=== PATIENT | male | born 1955 | race Two or more races ===

== ENCOUNTER → 2017-03-08 | Outpatient (CLI) | payer BC ==
[~2017-03-08] MED LIST: ASPI-482 PO; ATOR40TA59 PO; DOCU-109 PO; ESZO3TAB28 PO; FAMO20TA5 PO; HYDR-2762 PO; LOSA100T6 PO; METF500T4 PO; METH-38 PO; PROAIR RESPICL90 MCG IH
[2017-03-08 16:11] LABS: ALBUMIN 3.7 g/dL (3.4-5.0); ALBUMIN/GLOBULIN RATIO 0.9 (1.0-1.7); CALCIUM 9.5 mg/dL (8.5-10.1); GFR 75.5; POTASSIUM 4.2 mmol/L (3.5-5.1); TOTAL BILIRUBIN 0.4 mg/dL (0.2-1.0); TOTAL PROTEIN 7.8 g/dL (6.4-8.2)
== END | disposition home or self-care (01) ==
LOC: SURGPAT 15:26
PROVIDERS: ATTEND Neurological Surgery
DX: Z01.818 Encounter for other preprocedural examination (principal); M51.16 Intervertebral disc disorders with radiculopathy, lumbar region; M48.061 Spinal stenosis, lumbar region without neurogenic claudication
CPT/HCPCS: 36415; 80053; 87641

== ENCOUNTER → 2017-03-17 | Day surgery (SDC) | payer BC ==
--- NOTE | 2017-03-15 10:16 | PREOP HP ---
DATE OF SERVICE: 03/17/2017 HISTORY OF PRESENT ILLNESS: The patient is a pleasant 62-year-old who is having difficulty with low back pain and pain which radiates into both of his buttocks and thighs. The right side is much more involved than the left. The problem has been present for years, but has worsened over the last several months. He rates his pain as a 7/10 constantly. He said physical therapy and driving make the problem worse. Ice seems to help. He had epidural steroid injections, which he said helped significantly for about 2 weeks and then the pain returned. PAST MEDICAL HISTORY: Hepatitis A. PAST SURGICAL HISTORY: Splenectomy in 1970, right knee meniscus repair, left knee meniscus repair in 2012, right shoulder 2013. FAMILY HISTORY: Cancer, diabetes, heart attack in early age. 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 . Exercises daily. Denies substance abuse. Denies tobacco use. Drinks alcohol one to two times per month. Drinks caffeine daily. ALLERGIES: No known drug allergies. CURRENT MEDICATIONS: Losartan, metformin, ibuprofen, naproxen, Tylenol. REVIEW OF SYSTEMS: A 12-point review of systems was obtained and is noncontributory except that mentioned above. NEUROSURGERY EXAMINATION: GENERAL APPEARANCE: Pleasant, in no acute distress. HEAD: Normocephalic and atraumatic. SKIN: Warm and dry. MUSCULOSKELETAL: Lumbar paraspinal muscle bulk is normal, restricted range of motion of lumbar spine. Normal range of motion of the lower extremities bilaterally. Tenderness in the lower lumbar spine with palpation, especially on the right side. EXTREMITIES: No clubbing, cyanosis or edema. NEUROLOGIC: Alert and oriented x 3, normal recent and remote memory, strength 5/5 in bilateral lower extremities, sensory was intact to light touch in bilateral lower extremities, reflexes were present and symmetric in the lower extremities bilaterally, straight leg raising on the right was associated with right buttock pain, relieved with Lasegue maneuver. IMAGING: Reviewed. I reviewed the lumbar MRI scan. On that study, there is a right-sided disk bulge/herniation at L4-L5, which when combined with hypertrophic facet and ligamentum flavum results in severe right-sided lateral recess and proximal foraminal narrowing. There are more mild changes, which are similar on the left side at this level. ASSESSMENT: 1. Spinal stenosis, lumbar region. 2. Radiculopathy, lumbar region. PLAN: I believe the problems at L4-L5 on the right are responsible for the majority of the pain he is experiencing. I spoke with him about the treatment options. At this point, we have elected to try a lumbar microsurgical decompression at L4-L5. I spoke with him about the surgery and the risks involved. He understands and would like for me to go ahead. We will make the arrangement. DEAN GIFFORD MD DR: RENATA/inocencia JOB#: [id number] / [id number]
[~2017-03-17] VITALS: Ht 172.7 cm; Wt 90.7 kg
[~2017-03-17] MED LIST changes: +0.9 % SODIUM CHLORIDE 50 ML VIAL. IJ ONE; +BACITRACIN 50,000 UNIT in IV NORMAL SALINE 1000ML BAG 1,000 ML IRR ONE; +BUPIVAC MPF-EPI 0.5%-1:200000 30 ML VIAL. INJ ONE; +BUPIVAC MPF-EPI 0.5%-1:200000 30 ML VIAL. ONE; +DESFLURANE > 120 MINUTES IH ONE; +DEXAMETHASONE SOD PHOS 20 MG/5 ML VIAL. ONE; +GELATIN SPONGE SIZE 100. ONE; +GELATIN SPONGE SIZE 100. TP ONE; +GLYCOPYRROLATE 1 MG/5 ML VIAL. ONE; +HYDROcodone/APAP 7.5/325MG 1 TAB TABLET PO PRN; +HYDROmorphone 2 MG/ML VIAL IV PRN; +IV RINGERS,LACTATED 1000ML 1,000 ML IV SCH; +KETOROLAC 60 MG/2 ML INJ FOR OR. INJ ONE; +KETOROLAC 60 MG/2 ML INJ FOR OR. ONE; +LIDOCAINE 1% PF 2 ML VIAL. ID PRN; +LIDOCAINE 2% PF Vial for OR 5 ML VIAL. ONE; +MINERAL OIL/PETROLATUM,WHITE OPHTH OINT 3.5GM TUBE. ONE; +MORPHINE SULFATE 2 MG/ML DISP.SYRIN. IV PRN; +NEOSTIGMINE 10 MG/10 ML VIAL. ONE; +ONDANSETRON PF 4 MG/2 ML VIAL. IV PRN; +ONDANSETRON PF 4 MG/2 ML VIAL. ONE; +PHENYLEPHRINE 10 MG/ML VIAL. ONE; +PROCHLORPERAZINE 10 MG/2 ML VIAL. IV PRN; +PROPOFOL 20 ML IV ONE; +PROPOFOL 50 ML IV ONE; +REMIFENTANIL 2 MG VIAL. IV ONE; +ROCURONIUM 50 MG/5 ML VIAL. ONE; +THROMBIN TOPICAL 20,000 UNIT SPRAY.SYRN KIT TP ONE; +ceFAZolin 2GM PREMIX 2 GM/50 ML BAG IV ONE; +fentaNYL PF VIAL 100 MCG/2 ML VIAL IV PRN; +fentaNYL PF VIAL 100 MCG/2 ML VIAL ONE
--- NOTE | 2017-03-17 10:55 | DISCH ---
DISCHARGE INSTRUCTIONS Condition on Discharge Condition on Discharge: Stable Activity After Discharge Activity Instructions for Disc: Activity as tolerated, Avoid exertion Other activity instructions: do not drive for a week Lifting Instructions after Dis: No heavy lifting, No pulling or pushing, Do not lift >10 pounds Diet after Discharge Additional Diet Restrictions: resume home diet Wound Incision Care Wound/Incision Care: Ice to area for comfort Other wound/incision instructi: may remove dressing in 48 hrs if dry then may shower- no soaking Contacting the after DC Call your doctor for: Concerns you may have Follow-Up Follow up with: Dr. Gifford's nurse in 2 weeks [phone] DEAN GIFFORD MD Mar 17, 2017 10:54
[2017-03-17] MEDS: fentaNYL PF VIAL 100 MCG/2 ML VIAL IV PRN ×2 (11:15→11:28)
--- NOTE | 2017-03-17 11:17 | OP ---
DATE OF SURGERY: 03/17/2017 PREOPERATIVE DIAGNOSES: Lateral recess stenosis and herniated lumbar disc, L4-L5 right with right lumbar radiculopathy. POSTOPERATIVE DIAGNOSES: Lateral recess stenosis and herniated lumbar disc, L4-L5 right with right lumbar radiculopathy. OPERATION PERFORMED: Hemilaminotomy and microdiscectomy L4-L5, right. The operation was done under EMG monitoring, fluoroscopy, and microscopic dissection. SURGEON: Robert Gifford M.D. ENGINE LATHE OPERATOR: JERO Henderson assisted with the surgery, she assisted with the exposure, the microdiscectomy as well as the closure. OPERATIVE INDICATIONS: The patient is a very pleasant 62-year-old man who developed intractable back and right greater than left leg pain, which became very severe and disabling. On imaging studies, he had significant changes with disc bulging and lateral stenosis on the right at L4-L5 and I recommended lumbar microsurgery. He had similar findings on the left side, but it was not as severe and I felt that because of the majority of his pain was on the right that the operation should be focused to the right side and I did discuss this with him prior to surgery. DESCRIPTION OF PROCEDURE: Following general endotracheal anesthesia, the patient was positioned prone on the Davie table with lumbar regions prepped and draped in the standard fashion. MARIANGEL hose and AV impulse boots were applied for deep venous thrombosis prophylaxis. The microscope was draped. Fluoroscopy was draped and brought into field. Monitoring was established. Ancef 2 grams was given less than 1 hour prior to initiation of surgery. Using fluoroscopic guidance, incision was made over the L4-L5 interspace. I dissected down through the skin to the subcutaneous tissue, reflected the paraspinal muscles and placed [place] micro disc retractor. Then, I brought in the microscope and the remainder of surgery was done with the microscope using microscopic technique. I burred down a generous hemilaminotomy with a high speed air drill and visualized the ligamentum flavum, which extended slightly farther superiorly in this patient than the average patient and I trimmed further bone superiorly to allow me to gently free up and peel away the ligament providing a wide decompression for the dura. I did work at least to the midline and slightly beyond with the decompression until I felt I had a very wide decompression medially to laterally. I trimmed the lateral ligament and worked to the pedicle as well and performed a partial foraminotomy. Superiorly I worked and trimmed all the left thickened ligament, which was partially calcified and exposed the dura and the exiting root at the level of the disc and slightly above. I then gently retracted the dura medially with a micro nerve root retractor, incised the annulus and performed a discectomy with pituitary rongeurs. The disc space was largely collapsed, but there was a significant bulging of subligamentous herniated material, which I then teased back and removed in multiple small fragments and as I worked, the region became very well decompressed. I then explored carefully. There were a few epidural veins, which I coagulated without difficulty. There was a small amount of bone wax, which was used for hemostasis and then I irrigated copiously, removed the retractors and then obtained hemostasis in the muscle. I irrigated again copiously and then I closed the wound in layers with absorbable sutures. Skin was closed with a 4-0 subcuticular stitch. The operation went very well and the patient was taken to the recovery room in excellent condition. I was quite pleased with the surgery. ROBERT GIFFORD MD DR: RENATA/inocencia JOB#: [id number] / [id number] REI
[2017-03-17 12:15] VITALS: BP 132/63
--- NOTE | 2017-03-22 12:09 | PATHOLOGY ---
PATHOLOGY REPORT * * * * * * * * FINAL DIAGNOSIS: "Lumbar decompression plus disc", removal: - Fragments of fibrocartilage with mild degenerative changes. - Fragments of unremarkable fibroadipose tissue and bone. (SKM:pit; 03/22/2017) REPORT ELECTRONICALLY SIGNED BY: Maury Porter M.D. DATE/TIME: 03/22/2017 12:08 * * * * * * * * GROSS PATHOLOGY: Received in formalin labeled "Mansoor Enriquez, lumbar decompression plus disc," are several pieces of glistening, fibrous tissue measuring 6.7 x 3.5 x 1.5 cm in aggregate dimensions, containing small fragments of possible bone. The tissue is submitted representatively in cassette A1, following decalcification. (TSD; 03/19/2017) INITIAL CPT CODE(S): A; 50137, 74129 Professional services [place] [place] [address] Technical services performed by [facility] at [address] [place] [address], [place] [address]. SPECIMEN(S) RECEIVED: A.Lumbar decompression and disc CLINICAL HISTORY: Lumbar stenosis, radiculopathy PATIENT: MANSOOR ENRIQUEZ /AGE: 9 1955 (Age: 62) PATIENT #: [id number] ALT CASE #: SPECIMEN COLLECTION DATE: 03/17/2017 SPECIMEN RECEIVED DATE: 03/19/2017 [facility] - [address] [place] [address] - PHONE: [phone] * * * END OF REPORT * * *
== END | disposition home or self-care (01) ==
LOC: SURG 07:13
PROVIDERS: ATTEND Neurological Surgery
DX: M48.061 Spinal stenosis, lumbar region without neurogenic claudication (principal); M51.16 Intervertebral disc disorders with radiculopathy, lumbar region; E78.00 Pure hypercholesterolemia, unspecified; J45.909 Unspecified asthma, uncomplicated; K21.9 Gastro-esophageal reflux disease without esophagitis; E11.9 Type 2 diabetes mellitus without complications; F41.9 Anxiety disorder, unspecified; F17.200 Nicotine dependence, unspecified, uncomplicated; Z90.49 Acquired absence of other specified parts of digestive tract; Z98.890 Other specified postprocedural states
CPT/HCPCS: 63030; 76000; 82962; 88304; 88311; J0690; J1100; J1885; J2405; J2704; J2710; J3010; J3490; J7030; J7120; J2001

== ENCOUNTER → 2020-08-21 | Outpatient (CLI) | payer MEDICARE ==
[2017-03-17 12:15] VITALS: BP 132/63
[~2020-08-21] MED LIST changes: -0.9 % SODIUM CHLORIDE 50 ML VIAL. IJ ONE; +ASCO500C PO; -BACITRACIN 50,000 UNIT in IV NORMAL SALINE 1000ML BAG 1,000 ML IRR ONE; -BUPIVAC MPF-EPI 0.5%-1:200000 30 ML VIAL. INJ ONE; -BUPIVAC MPF-EPI 0.5%-1:200000 30 ML VIAL. ONE; -DESFLURANE > 120 MINUTES IH ONE; -DEXAMETHASONE SOD PHOS 20 MG/5 ML VIAL. ONE; -GELATIN SPONGE SIZE 100. ONE; -GELATIN SPONGE SIZE 100. TP ONE; -GLYCOPYRROLATE 1 MG/5 ML VIAL. ONE; -HYDR-2762 PO; +HYDR-2765 PO; -HYDROcodone/APAP 7.5/325MG 1 TAB TABLET PO PRN; -HYDROmorphone 2 MG/ML VIAL IV PRN; -IV RINGERS,LACTATED 1000ML 1,000 ML IV SCH; -KETOROLAC 60 MG/2 ML INJ FOR OR. INJ ONE; -KETOROLAC 60 MG/2 ML INJ FOR OR. ONE; -LIDOCAINE 1% PF 2 ML VIAL. ID PRN; -LIDOCAINE 2% PF Vial for OR 5 ML VIAL. ONE; +LOSA100T14 PO; -LOSA100T6 PO; +METF500T16 PO; -METF500T4 PO; +METH-562 PO; -MINERAL OIL/PETROLATUM,WHITE OPHTH OINT 3.5GM TUBE. ONE; -MORPHINE SULFATE 2 MG/ML DISP.SYRIN. IV PRN; +MULT-245 PO; +MV-M1TAB7 PO; -NEOSTIGMINE 10 MG/10 ML VIAL. ONE; +OMEG1CAP50 PO; +OMEP40CA45 PO; -ONDANSETRON PF 4 MG/2 ML VIAL. IV PRN; -ONDANSETRON PF 4 MG/2 ML VIAL. ONE; +OXYC1TAB15 PO; -PHENYLEPHRINE 10 MG/ML VIAL. ONE; -PROCHLORPERAZINE 10 MG/2 ML VIAL. IV PRN; -PROPOFOL 20 ML IV ONE; -PROPOFOL 50 ML IV ONE; -REMIFENTANIL 2 MG VIAL. IV ONE; -ROCURONIUM 50 MG/5 ML VIAL. ONE; -THROMBIN TOPICAL 20,000 UNIT SPRAY.SYRN KIT TP ONE; +TRAZ-118 PO; +VITA100022 PO; -ceFAZolin 2GM PREMIX 2 GM/50 ML BAG IV ONE; -fentaNYL PF VIAL 100 MCG/2 ML VIAL IV PRN; -fentaNYL PF VIAL 100 MCG/2 ML VIAL ONE
[2020-08-21 14:14] LABS: BASO # 0.1 x10^3/uL (0.0-0.2); BASO % 1 % (0-3); EOS % 1 % (0-3); HEMATOCRIT 44.7 % (39.0-53.0); HEMOGLOBIN 15.1 g/dL (13.0-17.5); LYMPH # 2.4 x10^3/uL (1.0-4.8); LYMPH % 28 % (24-48); MEAN CORPUSCULAR HEMOGLOBIN 32 pg (25-35); MEAN CORPUSCULAR HGB CONC 34 g/dL (31-37); MEAN CORPUSCULAR VOLUME 95 fL (79-100); MONO # 0.8 x10^3/uL (0.0-1.1); MONO % 10 % (0-9); NEUT % 61 % (31-73); PLATELET COUNT 305 x10^3/uL (140-400); RED BLOOD COUNT 4.73 x10^6/uL (4.30-5.70); RED CELL DISTRIBUTION WIDTH 14.5 % (11.5-14.5); WHITE BLOOD COUNT 8.3 x10^3/uL (4.0-11.0)
[2020-08-21 14:23] LABS: PROTHROMBIN TIME PATIENT 12.9 SEC (11.7-14.0)
--- NOTE | 2020-08-21 14:28 | EKG ---
[facility] [address] [place] [address] Test Date: 2020-08-21 Test Time: 14:24:55 Pat Name: MANSOOR FREEMAN Department: Room: Gender: M Outlet Manager: : 1955 Requested By: DEAN GIFFORD Order Number: [id number] Reading MD: Ezequiel Burgos Measurements Intervals Emmett Rate: 82 P: 35 CT: 164 QRS: 10 QRSD: 86 T: 25 QT: 352 QTc: 414 Interpretive Statements SINUS RHYTHM NORMAL ECG RI6.02 No previous ECG available for comparison Electronically Signed On 08-22-2020 11:32:22 CDT by Ezequiel Burgos
[2020-08-21 14:32] LABS: ALBUMIN 3.9 g/dL (3.4-5.0); ALBUMIN/GLOBULIN RATIO 1.1 (1.0-1.7); CALCIUM 8.9 mg/dL (8.5-10.1); CREATININE 1.2 mg/dL (0.7-1.3); GFR 60.6; POTASSIUM 3.6 mmol/L (3.5-5.1); TOTAL BILIRUBIN 0.5 mg/dL (0.2-1.0); TOTAL PROTEIN 7.3 g/dL (6.4-8.2)
--- NOTE | 2020-08-23 13:48 | HP ---
ADMIT DATE: 08/26/2020 PREOPERATIVE HISTORY AND PHYSICAL HISTORY OF PRESENT ILLNESS: The patient is a pleasant 65-year-old man who is having difficulty with back and bilateral thigh pain. The problem has been slowly worsening. He rates his pain as 8/10 at its worst. He has a constant 2/10 pain. Walking or sitting too long increases his pain. He takes naproxen or ibuprofen to help with the pain. He underwent physical therapy in 2017 as well as epidural steroid injections more recently, which were not helpful. The left leg is not involved. MEDICATIONS: Losartan, metformin, ibuprofen, naproxen, Tylenol, atorvastatin, multivitamin, turmeric, vitamin D3, vitamin B complex, vitamin E, aspirin. PAST MEDICAL HISTORY: Hepatitis A, diabetes, COVID-19, kidney stones. PAST SURGICAL HISTORY: Splenectomy, right knee meniscus repair, left knee meniscus repair, right shoulder surgery, lumbar decompression/microdiskectomy L4-L5 in 02/2017. FAMILY HISTORY: Cancer, diabetes, [place]. SOCIAL HISTORY: Retired, . Does not smoke. Drinks alcohol 1-2 times per month. ALLERGIES: No known drug allergies. REVIEW OF SYSTEMS: A 10-point review of systems was performed and is noncontributory except that mentioned above. PHYSICAL EXAMINATION: GENERAL: Alert, pleasant, and in no acute distress. HEENT: Normocephalic, atraumatic. SKIN: Warm and dry. MUSCULOSKELETAL: Lumbar paraspinal muscle bulk is normal. Restricted range of motion of the lumbar spine, [id number] tenderness of the lower lumbar spine with palpation, normal range of motion of the lower extremities bilaterally. EXTREMITIES: No clubbing, cyanosis or edema. NEUROLOGIC: Alert and oriented x 3. Strength is 5/5 in the bilateral lower extremities except for right hip flexor and dorsiflexion, which is 4+/5. Sensory was intact to light touch in the lower extremities bilaterally, reflexes were present and symmetric in the lower extremities bilaterally, positive straight leg raising on the right, negative straight leg raising on the left, normal gait. IMAGING DATA: I reviewed a lumbar MRI scan. On that study, there is moderately severe canal stenosis at L3-L4 due to disk bulging and increasing facet thickness. There is also an element of epidural lipomatosis. At L4-L5, there are postoperative changes from his previous right-sided laminectomy. There is diffuse disk bulging with subarticular and severe foraminal narrowing on the right and to a lesser extent on the left. ASSESSMENT AND PLAN: I spoke with him about his symptoms and the lumbar radiculopathy. He does have lumbar stenosis at L3-L4, which would require a right direct laminectomy/decompression. At L4-5, which is a previously operated level, has foraminal narrowing. He would require a combination of lumbar facetectomy on the right combined with an interbody fusion and posterior instrumentation and fusion at that level. I did discuss this with him in detail. We spoke about the risks and the technique of the operation. We spoke about the expected postoperative course. He understands that he would like to go ahead. ABDIRASHID DR: Abdi TID: [id number] REI
== END ==
LOC: SURGPAT 13:29
PROVIDERS: ATTEND Neurological Surgery
DX: Z01.818 Encounter for other preprocedural examination (principal); M48.061 Spinal stenosis, lumbar region without neurogenic claudication; M54.16 Radiculopathy, lumbar region; E11.9 Type 2 diabetes mellitus without complications; Z20.822 Contact with and (suspected) exposure to COVID-19; Z86.16 Personal history of COVID-19
CPT/HCPCS: 36415; 80053; 83036; 85025; 85610; 85730; 87641; 93005; U0003; U0005

== ENCOUNTER 2020-08-26 06:11 | Inpatient (IN) | payer MEDICARE ==
[~2020-08-26] VITALS: Ht 172.7 cm; Wt 88.9 kg
[~2020-08-26 06:11] MED LIST changes: +BACITRACIN 50,000 UNIT in IV NORMAL SALINE 1000ML BAG 1,000 ML IRR ONE; -METH-562 PO; -OXYC1TAB15 PO
[2020-08-26] MEDS ORDERED: GELATIN SPONGE SIZE 100. ONE (07:03)
[2020-08-26] MEDS ORDERED: KETOROLAC 60 MG/2 ML VIAL. ONE (07:04)
[2020-08-26] MEDS ORDERED: BUPIVACAINE MPF 0.5% 30 ML VIAL. ONE (07:04)
[2020-08-26] MEDS ORDERED: THROMBIN TOPICAL 20,000 UNIT SPRAY.SYRN KIT TP ONE (07:04)
[2020-08-26] MEDS ORDERED: BUPIVACAINE-EPI 0.5%-1:200000 MPF 30 ML VIAL. ONE (07:05)
[2020-08-26] MEDS: IV RINGERS,LACTATED 1000ML 1,000 ML IV SCH ×2 (07:22→21:00)
[2020-08-26] MEDS ORDERED: REMIFENTANIL 2 MG VIAL. IV ONE (08:18)
[2020-08-26] MEDS ORDERED: MIDAZOLAM HCL/PF 2 MG/2 ML VIAL. ONE (08:18)
[2020-08-26] MEDS ORDERED: ROCURONIUM 50 MG/5 ML VIAL. ONE (08:18)
[2020-08-26] MEDS ORDERED: fentaNYL PF VIAL 250 MCG/5 ML VIAL ONE (08:18)
[2020-08-26] MEDS ORDERED: LIDOCAINE 2% PF 5 ML VIAL. ONE (08:19)
[2020-08-26] MEDS ORDERED: ONDANSETRON PF 4 MG/2 ML VIAL. ONE (08:19)
[2020-08-26] MEDS ORDERED: PROPOFOL 10 MG/ML (20ML) VIAL. IV ONE (08:19)
[2020-08-26] MEDS ORDERED: PROPOFOL 50 ML IV ONE ×2 (08:19→11:13)
[2020-08-26] MEDS ORDERED: DEXAMETHASONE SOD PHOS 4 MG/ML VIAL ONE (08:19)
[2020-08-26] MEDS ORDERED: INSULIN LISPRO 100 UNIT/ML 3ML VIAL for OP,RR ONLY. SQ PRN (08:30)
--- NOTE | 2020-08-26 08:43 | RAD ---
EXAM: CT lumbar spine without IV contrast CLINICAL HISTORY: BRAIN LAB, LUMBAR RADICULOPATHY COMPARISON: None available. TECHNIQUE: Helical CT was performed through the lumbar spine. Axial, coronal and sagittal reformatted images were generated. PQRS compliance statement - One or more of the following individualized dose reduction techniques wer e utilized for this study: 1. Automated exposure control 2. Adjustment of the mA and/or kV according to patient size 3. Use of iterative reconstruction technique FINDINGS: There are 5 nonrib-bearing lumbar-type vertebral bodies. Vertebral body heights are preserved. Severe L4-5 disc height loss. Mild L1-2 disc height loss. No spondylolisthesis. No acute fracture. Aortic calcifications are seen. No obvious retroperitoneal mass or lymphadenopathy is seen. L1-L2: Mild generalized disc bulge with ligamentum flavum hypertrophy and facet degenerative changes are seen resulting in mild flattening of the ventral thecal sac and mild bilateral neural foraminal n arrowing. L2-L3: Generalized disc bulge with ligamentum flavum hypertrophy and facet degenerative changes with mildly prominent epidural fat results in moderate central canal stenosis with thecal sac measuring ap proximately 8 mm in AP dimension with trace inferior neural foraminal narrowing, greater on the right . L3-L4: Generalized disc bulge with ligamentum flavum hypertrophy with prominent epidural fat results in severe thecal sac narrowing measuring approximately 5 mm in AP dimension with mild inferior neural foraminal narrowing bilaterally, greater on the right. L4-L5: Generalized disc bulge, eccentric to the right with ligamentum flavum hypertrophy and facet de generative changes and prominent epidural fat results in mild thecal sac narrowing, greater on the le ft with mild left and moderate to severe right neural foraminal narrowing. L5-S1: Mild generalized disc bulge with ligamentum flavum hypertrophy and facet degenerative changes result in mild central canal stenosis, moderate left and mild right neural foraminal narrowing. IMPRESSION: 1. No acute fracture or subluxation. 2. Multilevel degenerative changes of the lumbar spine as above, in conjunction with prominent epidu ral fat results in multilevel central canal stenosis or neural foraminal narrowing, most prominent at L3-4 and L4-5. Please see full details above. Electronically signed by: Dipesh Browning MD (08/26/2020 8:41 AM) [id number]
[2020-08-26] MEDS ORDERED: ePHEDrine PF IN SALINE 50 MG/10 ML SYRINGE. IV ONE (09:22)
[2020-08-26] MEDS ORDERED: REMIFENTANIL 1 MG VIAL. IV ONE (11:15)
[2020-08-26] MEDS ORDERED: DESFLURANE > 120 MINUTES IH ONE (11:33)
[2020-08-26] MEDS ORDERED: NEOSTIGMINE METHYLSULFATE 5 MG/5 ML SYRINGE. ONE (13:27)
[2020-08-26] MEDS ORDERED: GLYCOPYRROLATE 1 MG/5 ML VIAL. ONE (13:27)
[2020-08-26] MEDS: POTASSIUM CL 20MEQ D5-0.45NACL 1,000 ML IV SCH (13:45)
[2020-08-26] MEDS ORDERED: ONDANSETRON PF 4 MG/2 ML VIAL. IVP PRN (13:45)
[2020-08-26] MEDS ORDERED: CALCIUM CARBONATE 500 MG TAB.CHEW PO PRN (13:45)
[2020-08-26] MEDS ORDERED: diphenhydrAMINE HCL 25 MG CAPSULE PO PRN (13:45)
[2020-08-26] MEDS ORDERED: 0.9 % SODIUM CHLORIDE 10 ML DISP.SYRIN. IV PRN (13:45)
[2020-08-26] MEDS ORDERED: oxyCODONE/APAP 5/325 1 TAB TABLET PO PRN (13:45)
[2020-08-26] MEDS ORDERED: NON FORMULARY ITEM (Albuterol Sulfate (Proair Respiclick) 1 PUFF) IH PRN (13:45)
[2020-08-26] MEDS ORDERED: METHOCARBAMOL 750 MG TABLET PO PRN (13:45)
[2020-08-26] MEDS ORDERED: ACETAMINOPHEN 325 MG TABLET. PO PRN (13:45)
[2020-08-26] MEDS ORDERED: fentaNYL PF VIAL 100 MCG/2 ML VIAL IVP PRN ×3 (13:45→14:30)
[2020-08-26] MEDS ORDERED: MAG HYDROX/ALUMINUM HYD/SIMETH 30 ML ORAL.SUSP PO PRN (13:45)
[2020-08-26] MEDS ORDERED: MAGNESIUM HYDROXIDE 2,400 MG/30 ML ORAL.SUSP. PO PRN (13:45)
[2020-08-26] MEDS ORDERED: IV RINGERS,LACTATED 1000ML 1,000 ML IV SCH (14:30)
[2020-08-26] MEDS ORDERED: HYDROmorphone 2 MG/ML VIAL IVP PRN (14:30)
[2020-08-26] MEDS ORDERED: PROCHLORPERAZINE 10 MG/2 ML VIAL. IVP PRN (14:30)
[2020-08-26] MEDS: MORPHINE SULFATE 2 MG/ML VIAL. IVP PRN ×2 (15:09→15:25)
[2020-08-26] MEDS ORDERED: ALBUTEROL SULFATE 2.5 MG/3 ML NEBU. NEB PRN (15:30)
--- NOTE | 2020-08-26 15:45 | NUR ---
Arrive on unit by bed from PACU. Alert and oriented x's 4. No c/o at this time. Dressing saturated and changed. Pt able to move all extremities, warm touch and pedal pulses + bilaterally. Has some numbness on right foot but not as bad as prior to surgery. IVF's intact and infusing. Oriented to room and controls. Side rails up x's 2 with call light in reach. and friend at bedside. Cont. monitor.
[2020-08-26] MEDS ORDERED: metFORMIN 500 MG TABLET PO SCH (17:00)
[2020-08-26] MEDS: ceFAZolin SODIUM IV Push 1 GM VIAL. IVP SCH (17:15)
--- NOTE | 2020-08-26 17:45 | NUR ---
Pt ambulated in room with steady gait. Voided without difficulty. And sitting in chair with ice pack to lower back. at bedside.
[2020-08-26] MEDS ORDERED: LOSARTAN POTASSIUM 50 MG TABLET. PO SCH (18:00)
--- NOTE | 2020-08-26 18:50 | NUR ---
Pt return back to bed. Side rails up x's 2 with call light in reach. Cont. monitor.
[2020-08-26 19:00] VITALS: BP 119/71
[2020-08-26] MEDS: DOCUSATE SODIUM 100 MG CAPSULE. PO SCH ×2 (20:35→21:00)
[2020-08-26] MEDS ORDERED: ASPIRIN ENTERIC COATED 81 MG TABLET.DR. PO SCH (21:00)
[2020-08-26] MEDS ORDERED: ATORVASTATIN CALCIUM 40 MG TABLET. PO SCH (21:00)
[2020-08-26] MEDS ORDERED: traZODone 50 MG TABLET. PO SCH (21:00)
[2020-08-26 23:00] VITALS: BP 102/42
[2020-08-27] MEDS: ceFAZolin SODIUM IV Push 1 GM VIAL. IVP SCH ×2 (00:33→08:10)
[2020-08-27] MEDS: POTASSIUM CL 20MEQ D5-0.45NACL 1,000 ML IV SCH (00:42)
[2020-08-27 03:00] VITALS: BP 103/55
[2020-08-27 07:00] VITALS: BP 114/59
[2020-08-27] MEDS ORDERED: PANTOPRAZOLE 40 MG TABLET.DR. PO SCH (07:30)
[2020-08-27] MEDS: DOCUSATE SODIUM 100 MG CAPSULE. PO SCH ×2 (08:08→09:00)
[2020-08-27] MEDS: oxyCODONE/APAP 5/325 1 TAB TABLET PO PRN ×2 (08:08→12:01)
[2020-08-27] MEDS ORDERED: ASCORBIC ACID 1,000 MG TABLET PO SCH (09:00)
[2020-08-27] MEDS ORDERED: NON FORMULARY ITEM (Mv-Mn/Iron/Fa/Herbal Cmplx#190 (Vitamin D3 Complete Caplet) 1 EACH) PO SCH (09:00)
[2020-08-27] MEDS ORDERED: VITAMIN E 200 UNIT CAPSULE. PO SCH (09:00)
[2020-08-27] MEDS ORDERED: MULTIVITAMIN with MINERAL TABLET. PO SCH (09:00)
[2020-08-27] MEDS: IV RINGERS,LACTATED 1000ML 1,000 ML IV SCH (09:40)
[2020-08-27 10:44] VITALS: BP 106/36
[2020-08-27] MEDS ORDERED: OXYC1TAB15 PO (12:43)
[2020-08-27] MEDS ORDERED: METH-562 PO (12:43)
--- NOTE | 2020-08-27 12:44 | DISCH ---
DISCHARGE INSTRUCTIONS Condition on Discharge Condition on Discharge: Stable Activity After Discharge Activity Instructions for Disc: Activity as tolerated, Avoid exertion Other activity instructions: no driving for a week , wear lumbar brace Lifting Instructions after Dis: No heavy lifting, No pulling or pushing, Do not lift >10 pounds Diet after Discharge Additional Diet Restrictions: resume home diet Wound Incision Care Wound/Incision Care: Ice to area for comfort Other wound/incision instructi: may remove dressing in 48 hrs if dry, no soaking Contacting the DRPavel after DC Call your doctor for: Concerns you may have Follow-Up Follow up with: Dr. Gifford's nurse in 2 weeks [phone] DEAN GIFFORD MD August 27, 2020 12:44
--- NOTE | 2020-08-27 12:46 | PDOC ---
PROGRESS NOTES Date of Service DATE: 08/27/20 TIME: 12:45 Subjective Subjective POD #2 leg pain resolved back/ incision pain , controlled with mediation Objective Objective Vital Signs Date Time Temp Pulse Resp B/P (MAP) Pulse Ox O2 Delivery O2 Flow Rate FiO2 08/27/20 12:01 Room Air 08/27/20 10:44 99.1 86 18 106/36 (59) 95 99.1 08/26/20 20:00 8.0 Intake and Output 08/27/20 07:00 Intake Total 2780 ml Output Total 1475 ml Balance 1305 ml Intake Oral 780 ml IV Total 2000 ml Output Urine Total 1325 ml Emesis 100 ml Estimated Blood Loss 50 ml Physical Exam General: Alert, Oriented X3, Cooperative Neuro: Other (strength in LE) Skin: Other (dressing changed) Plan Plan of Care dc home 'f/u 2 week Comment Review of Relevant I have reviewed the following items dasha (where applicable) has been applied. Labs Laboratory Tests Test 08/26/20 08:18 08/26/20 14:38 08/26/20 16:19 08/26/20 20:28 Glucose (Fingerstick) 102 mg/dL (70-99) 156 mg/dL (70-99) 135 mg/dL (70-99) 145 mg/dL (70-99) Test 08/27/20 07:18 08/27/20 11:24 Glucose (Fingerstick) 126 mg/dL (70-99) 129 mg/dL (70-99) Laboratory Tests Test 08/26/20 14:38 08/26/20 16:19 08/26/20 20:28 08/27/20 07:18 Glucose (Fingerstick) 156 mg/dL (70-99) 135 mg/dL (70-99) 145 mg/dL (70-99) 126 mg/dL (70-99) Test 08/27/20 11:24 Glucose (Fingerstick) 129 mg/dL (70-99) Medications Current Medications Bacitracin 34841 unit/Sodium Chloride 1,000 ml @ 1,000 mls/hr 1X ONCE IRR Last administered on 08/26/20at 09:33; Start 08/26/20 at 06:00; Stop 08/26/20 at 06:59; Status DC Cefazolin Sodium/ Dextrose 50 ml @ 100 mls/hr 1X PREOP PRN IV PRIOR TO PROCEDURE Last administered on 08/26/20at 09:02; Start 08/26/20 at 06:00; Stop 08/26/20 at 18:00; Status DC Ringer's Solution 1,000 ml @ 75 mls/hr [id number] IV Last administered on 08/26/20at 07:22; Start 08/26/20 at 07:00 Gelatin (Gelfoam Size 100) 1 each STK-MED ONCE .ROUTE Last administered on 08/26/20at 09:33; Start 08/26/20 at 07:03; Stop 08/26/20 at 07:04; Status DC Ketorolac Tromethamine (Toradol Im) 60 mg STK-MED ONCE .ROUTE Last administered on 08/26/20at 09:33; Start 08/26/20 at 07:04; Stop 08/26/20 at 07:04; Status DC Bupivacaine HCl (Sensorcaine Mpf 0.5%) 30 ml STK-MED ONCE .ROUTE ; Start 08/26/20 at 07:04; Stop 08/26/20 at 07:04; Status DC Thrombin 20,000 unit STK-MED ONCE TP Last administered on 08/26/20at 09:33; Start 08/26/20 at 07:04; Stop 08/26/20 at 07:04; Status DC Bupivacaine HCl/ Epinephrine Bitart (Sensorcain-Epi 0.5%-1:725423 Mpf) 30 ml STK-MED ONCE .ROUTE Last administered on 08/26/20at 09:33; Start 08/26/20 at 07:05; Stop 08/26/20 at 07:05; Status DC Rocuronium Forbes (Zemuron) 50 mg STK-MED ONCE .ROUTE ; Start 08/26/20 at 08:18; Stop 08/26/20 at 08:18; Status DC Midazolam HCl (Versed) 2 mg STK-MED ONCE .ROUTE ; Start 08/26/20 at 08:18; Stop 08/26/20 at 08:18; Status DC Remifentanil HCl (Ultiva) 2 mg STK-MED ONCE IV ; Start 08/26/20 at 08:18; Stop 08/26/20 at 08:19; Status DC Fentanyl Citrate (Fentanyl 5ml Vial) 250 mcg STK-MED ONCE .ROUTE ; Start 08/26/20 at 08:18; Stop 08/26/20 at 08:19; Status DC Propofol (Diprivan) 200 mg STK-MED ONCE IV ; Start 08/26/20 at 08:19; Stop 08/26/20 at 08:19; Status DC Dexamethasone Sodium Phosphate (Decadron) 4 mg STK-MED ONCE .ROUTE ; Start 08/26/20 at 08:19; Stop 08/26/20 at 08:19; Status DC Ondansetron HCl (Zofran) 4 mg STK-MED ONCE .ROUTE ; Start 08/26/20 at 08:19; Stop 08/26/20 at 08:19; Status DC Lidocaine HCl (Lidocaine Pf 2% Vial) 5 ml STK-MED ONCE .ROUTE ; Start 08/26/20 at 08:19; Stop 08/26/20 at 08:19; Status DC Propofol 50 ml @ As Directed STK-MED ONCE IV ; Start 08/26/20 at 08:19; Stop 08/26/20 at 08:19; Status DC Insulin Human Lispro (HumaLOG VIAL for OP,RR ONLY) 0-10 units PRN Q1HR PRN SQ PER PROTOCOL Last administered on 08/26/20at 14:47; Start 08/26/20 at 08:30; Stop 08/27/20 at 08:29; Status DC Ephedrine Sulfate (ePHEDrine PF IN SALINE SYRINGE) 50 mg STK-MED ONCE IV ; Start 08/26/20 at 09:22; Stop 08/26/20 at 09:22; Status DC Propofol 50 ml @ As Directed STK-MED ONCE IV ; Start 08/26/20 at 11:13; Stop 08/26/20 at 11:14; Status DC Remifentanil HCl (Ultiva) 1 mg STK-MED ONCE IV ; Start 08/26/20 at 11:15; Stop 08/26/20 at 11:15; Status DC Desflurane (Suprane) 90 ml STK-MED ONCE IH ; Start 08/26/20 at 11:33; Stop 08/26/20 at 11:33; Status DC Glycopyrrolate (Robinul) 1 mg STK-MED ONCE .ROUTE ; Start 08/26/20 at 13:27; Stop 08/26/20 at 13:27; Status DC Neostigmine Forbes (Neostigmine Methylsulfate) 5 mg STK-MED ONCE .ROUTE ; Start 08/26/20 at 13:27; Stop 08/26/20 at 13:27; Status DC Aspirin (Ecotrin) 81 mg QHS PO Last administered on 08/26/20at 20:35; Start 08/26/20 at 21:00 Atorvastatin Calcium (Lipitor) 40 mg QHS PO Last administered on 08/26/20at 20:35; Start 08/26/20 at 21:00 Docusate Sodium (Colace) 100 mg BID PO Last administered on 08/27/20 08:08; Start 08/26/20 at 21:00 Metformin HCl (Glucophage) 1,000 mg DAILYWSUP PO Last administered on 08/26/20at 17:14; Start 08/26/20 at 17:00 Trazodone HCl (Desyrel) 50 mg QHS PO Last administered on 08/26/20at 20:35; Start 08/26/20 at 21:00 Non-Formulary Medication (Albuterol Sulfate (Proair Respiclick)) 1 puff PRN PRN IH SHORTNESS OF BREATH; Start 08/26/20 at 13:45; Status UNV Ascorbic Acid (Vitamin C) 1,000 mg DAILY PO Last administered on 08/27/20at 0 8:08; Start 08/27/20 at 09:00 Losartan Potassium (Cozaar) 50 mg QEVNG PO Last administered on 08/26/20at 17:52; Start 08/26/20 at 18:00 Multivitamins (Thera M Plus) 1 tab DAILY PO Last administered on 08/27/20at 08:08; Start 08/27/20 at 09:00 Non-Formulary Medication (Mv-Mn/Iron/Fa/ Herbal Cmplx#190 (Vitamin D3 Complete Caplet)) 1 each DAILY PO ; Start 08/27/20 at 09:00; Status UNV Pantoprazole Sodium (Protonix) 40 mg DAILYAC PO Last administered on 08/27/20at 08:08; Start 08/27/20 at 07:30 Vitamin E (Vitamin E) 1,000 unit DAILY PO Last administered on 08/27/20at 08:07; Start 08/27/20 at 09:00 Fentanyl Citrate (Fentanyl 2ml Vial) 50 mcg PRN Q2HR PRN IVP MODERATE TO SEVERE PAIN Last administered on 08/26/20at 14:26; Start 08/26/20 at 13:45 Acetaminophen (Tylenol) 650 mg PRN Q6HRS PRN PO MILD PAIN / TEMP > 100.3'F; Start 08/26/20 at 13:45 Al Hydroxide/Mg Hydroxide (Mylanta Plus Xs) 30 ml PRN Q3HRS PRN PO HEARTBURN / GAS; Start 08/26/20 at 13:45 Calcium Carbonate/ Glycine (Tums) 500 mg PRN Q3HRS PRN PO INDIGESTION; Start 08/26/20 at 13:45 Diphenhydramine HCl (Benadryl) 25 mg PRN Q6HRS PRN PO ITCHING; Start 08/26/20 at 13:45 Sodium Chloride (Normal Saline Flush) 3 ml QSHIFT PRN IV AFTER MEDS AND BLOOD DRAWS; Start 08/26/20 at 13:45 Potassium Chloride/Dextrose/ Sod Cl 1,000 ml @ 75 mls/hr [id number] IV Last administered on 08/27/20at 00:42; Start 08/26/20 at 13:45 Oxycodone/ Acetaminophen (Percocet 5/325) 1 tab PRN Q4HRS PRN PO MILD PAIN, 1ST CHOICE Last administered on 08/27/20at 12:01; Start 08/26/20 at 13:45 Oxycodone/ Acetaminophen (Percocet 5/325) 2 tab PRN Q4HRS PRN PO MODERATE PAIN, SEVERE PAIN; Start 08/26/20 at 13:45 Methocarbamol (Robaxin) 750 mg PRN TID PRN PO MUSCLE SPASMS; Start 08/26/20 at 13:45 Docusate Sodium (Colace) 100 mg BID PO ; Start 08/26/20 at 21:00 Magnesium Hydroxide (Milk Of Magnesia) 2,400 mg PRN Q12HR PRN PO CONSTIPATION; Start 08/26/20 at 13:45 Ondansetron HCl (Zofran) 4 mg PRN Q6HRS PRN IVP NAUESA, 1ST CHOICE; Start 08/26/20 at 13:45 Cefazolin Sodium (Ancef) 1 gm Q8H IVP Last administered on 08/27/20at 08:10; Start 08/26/20 at 17:00; Stop 08/27/20 at 09:01; Status DC Fentanyl Citrate (Fentanyl 2ml Vial) 25 mcg PRN Q5MIN PRN IVP MILD PAIN 1-3; Start 08/26/20 at 14:30; Stop 08/27/20 at 14:29 Fentanyl Citrate (Fentanyl 2ml Vial) 50 mcg PRN Q5MIN PRN IVP MODERATE PAIN 4-6 Last administered on 08/26/20at 14:40; Start 08/26/20 at 14:30; Stop 08/27/20 at 14:29 Morphine Sulfate (Morphine Sulfate) 1 mg PRN Q10MIN PRN IVP SEVERE PAIN 7-10 Last administered on 08/26/20at 15:25; Start 08/26/20 at 14:30; Stop 08/27/20 at 14:29 Ringer's Solution 1,000 ml @ 30 mls/hr Q24H IV ; Start 08/26/20 at 14:30; Stop 08/27/20 at 02:29; Status DC Hydromorphone HCl (Dilaudid) 0.5 mg PRN Q10MIN PRN IVP SEVERE PAIN 7-10, 2nd CHOICE; Start 08/26/20 at 14:30; Stop 08/27/20 at 14:29 Prochlorperazine Edisylate (Compazine) 5 mg PACU PRN PRN IVP NAUSEA, MRX1; Start 08/26/20 at 14:30; Stop 08/26/20 at 20:00; Status DC Albuterol Sulfate (Ventolin Neb Soln) 2.5 mg PRN Q4HRS PRN NEB SHORTNESS OF BREATH; Start 08/26/20 at 15:30 Active Scripts Active Colace (Docusate Sodium) 100 Mg Capsule 100 Mg PO BID Reported Vitamin E (Vitamin E Acetate) 1,000 Unit Capsule 1,000 Unit PO DAILY Vitamin D3 Complete Caplet (Mv-Mn/Iron/Fa/Herbal Cmplx#190) 1 Each Tablet 1 Each PO DAILY Fish Oil 1,000 Mg Softgel ([place]-3 Fatty Acids/Fish Oil) 1 Each Capsule 1 Cap PO DAILY 30 Days Vitamin C (Ascorbic Acid) 500 Mg Capsule.er 2 Cap PO DAILY 30 Days Multi Vitamin Daily (Multivitamin) 1 Each Tablet 1 Tab PO DAILY 30 Days Omeprazole 40 Mg Capsule. 1 Cap PO DAILY Trazodone Hcl 50 Mg Tablet 1 Tab PO QHS Proair Respiclick (Albuterol Sulfate) 90 Mcg Aer.pow.ba 1 Puff IH PRN PRN Aspir 81 (Aspirin) 81 Mg Tablet. 1 Tab PO QHS Atorvastatin Calcium 40 Mg Tablet 1 Tab PO DAILY Losartan Potassium 100 Mg Tablet 50 Mg PO QEVNG Metformin Hcl 500 Mg Tablet 1,000 Mg PO DAILYWSUP Vitals/I & O Vital Sign - Last 24 Hours 08/26/20 08/26/20 08/26/20 08/26/20 13:48 14:04 14:20 14:26 Temp 100.2 100.2 Pulse 100 102 100 Resp 18 16 18 18 B/P (MAP) 130/69 131/75 146/66 Pulse Ox 100 100 100 96 O2 Delivery Simple Mask Simple Mask Room Air Room Air O2 Flow Rate 8 8 08/26/20 08/26/20 08/26/20 08/26/20 14:40 15:04 15:09 15:20 Temp 97.8 97.8 Pulse 89 92 Resp 18 18 18 B/P (MAP) 134/62 133/67 Pulse Ox 94 94 97 96 O2 Delivery Room Air Room Air Room Air Room Air 08/26/20 08/26/20 08/26/20 08/26/20 15:25 15:50 16:15 17:52 Pulse 86 Resp 18 B/P (MAP) 136/84 Pulse Ox 96 96 O2 Delivery Room Air Room Air Room Air 08/26/20 08/26/20 08/26/20 08/26/20 19:00 20:00 21:20 23:00 Temp 97.4 97.8 97.4 97.8 Pulse 94 86 Resp 18 16 B/P (MAP) 119/71 (87) 102/42 (62) Pulse Ox 97 94 96 O2 Delivery Room Air Room Air O2 Flow Rate 8.0 08/27/20 08/27/20 08/27/20 08/27/20 03:00 07:00 08:00 08:08 Temp 98.1 98.2 98.1 98.2 Pulse 75 86 Resp 18 18 B/P (MAP) 103/55 (71) 114/59 (77) Pulse Ox 96 95 O2 Delivery Room Air Room Air 08/27/20 08/27/20 08/27/20 08:38 10:44 12:01 Temp 99.1 99.1 Pulse 86 Resp 18 B/P (MAP) 106/36 (59) Pulse Ox 95 O2 Delivery Room Air Room Air Intake and Output 08/26/20 08/26/20 08/27/20 15:00 23:00 07:00 Intake Total 1600 ml 940 ml 240 ml Output Total 1250 ml 100 ml 125 ml Balance 350 ml 840 ml 115 ml Justifications for Admission Other Justification DEAN GIFFORD MD August 27, 2020 12:46
--- NOTE | 2020-08-27 13:17 | NUR ---
Patient discharged home with self care. Patient verbalized understanding of discharge instructions. Patient had no questions at this time.
--- NOTE | 2020-08-29 10:16 | OP ---
PREOPERATIVE DIAGNOSES: 1. Lumbar spinal stenosis, L3-L4. 2. Severe foraminal narrowing with radiculopathy, L4-L5, right. OPERATIONS PERFORMED: 1. Right direct laminectomy, L3-L4. 2. Transfacet decompression, right L4-L5. 3. Posterior instrumentation L4-L5, posterolateral fusion, L4-L5. The operation was done with multimodality monitoring including EMG, SSEP, motor evoked potentials, fluoroscopy, microscopic dissection and BrainLAB guidance. JERO Henderson, assisted with the surgery. She assisted with the exposure, decompression, instrumentation, and closure. OPERATIVE INDICATIONS: The patient is a very pleasant 65-year-old man who is having difficulty with back and bilateral leg pain. The right leg pain is much more severe than the left. IMAGING STUDIES: He has above-mentioned findings and I recommended lumbar microsurgery. He understood the surgery and the risks, the technique and he wished to go ahead. DESCRIPTION OF PROCEDURE: Following general endotracheal anesthesia, the patient was positioned prone on the Davie table. Lumbar region prepped and draped in standard fashion. MARIANGEL hose and AV impulse boots were applied for DVT prophylaxis. The microscope was draped, fluoroscopy was draped and brought into the field. Monitoring was established. Ancef 2 grams given less than one hour prior to initiation of surgery. Using fluoroscopic guidance, a midline incision was made extending from L3 to L5. I carried this down through the skin and subcutaneous tissue. I did attach the BrainLAB Star at this point and I initialized the BrainLAB system. I then reflected the paraspinal muscles to the right at L3-L4 and placed a [place] microdisk retractor. I used a high speed air drill and brought in the microscope and use of microscope going forward with microscopic technique and dissection, I put down a very generous hemilaminotomy. I drilled across the midline, removed the epidural fat in the midline and decompressed the dura and then worked laterally and decompressed the dura peeling away thickened ligamentum flavum and performing a partial foraminotomy. The disk was firm and diskectomy was warranted. I completed this level. Then, I moved down to L4-L5. I stripped away the scar and exposed the edges of the previous operation. Again, through the microscope, I burred down the facet and then made a transforaminal approach to visualize the L5 root. In fact I fully decompressed the L4 root. In fact to fully decompressed the root, I followed it from L3-L4. laminectomy followed around laterally and can visualize it very safely and visualized the areas as a marked compression. Part of the problem was a large bulging disk in the foramen combined with severe foraminal narrowing and I opened up into the disk and performed a diskectomy laterally and I fully decompressed the dura. The patient's anatomy with a somewhat low lying inferior aspect of the pedicle precluded placement of a cage safely from this approach. I fully decompressed the entire region and then I using the [place] system, drilled into the posterior aspect of the pedicles of L4 and L5 and placed instrumentation with a public pedicle screws, placed the rods and torqued to system, and during this time, then exposed the lateral facets visualized the transverse processes at both L4 and L5 bilaterally and packed allograft bone in these locations after I aspirated 20 mL of bone marrow from the left iliac crest. Once the bone was packed in the position, the hardware was fully torqued. I did distract a small amount at L4-L5 on the right to be sure that the foramen was slightly opened as much as I felt was safe to do. I irrigated copiously with antibiotic solution. At this point, the system was torqued, the decompression was excellent. I closed the wound in layers with absorbable suture and the skin was closed with 4-0 subcuticular stitch. I felt the surgery went very well. RENATA/DEIDRA/SCOTT DR: Saritha TID: [id number]
--- NOTE | 2020-08-29 18:10 | PATHOLOGY ---
[facility] Accession Number: [id number] . 01 Material submitted: . vertebral column - LUMBAR DECOMPRESSION. Modifiers: LUMBAR . 01 Clinical history: . LUMBAR LAMINECTOMY L3-4,L4-5 ANT. POST. INTERBODY FUSION L4-5 POST LATERAL FUSION POST INSTR. L4-5 . 02 Diagnosis: Segments of fibrocartilaginous tissue and bone, lumbar decompression: - Degenerative changes of fibrocartilaginous tissue. (JPM:[facility] 08/29/2020) [facility] 08/29/2020 1517 Local . 02 Comment: There is no evidence of an acute inflammatory process or malignancy. (JPM:[facility] 08/29/2020) . 02 Electronically signed: . Bobby Denny MD, Pathologist NPI- [id number] . 01 Gross description: . The specimen is received in formalin, labeled "Mina, Daryn", "lumbar decompression". Received are multiple fragments of slightly gritty, glistening pale salmon soft tissue and possible bone, measuring 4.0 x 3.8 x 0.5 cm in aggregate dimensions. Finishing Powder Press Operator sections are submitted in cassette A1, following light decalcification.(SNA; 08/28/2020) ELENITA/MYKE 08/28/2020 0900 Local . 02 Pathologist provided ICD-10: M99.73, M54.16 . 02 CPT . 166844, [id number] Specimen Comment: A courtesy copy of this report has been sent to [phone], [phone] Specimen Comment: [id number] Specimen Comment: Report sent to / DR ROOT Performed at: [address], [place] [id number] MD Ghanshyam Calderon MD Phone: [phone] Performed at: 02 [facility] [address] [place], [place] [id number] MD Bobby Denny MD Phone: [phone]
== END 2020-08-27 13:20 | disposition home or self-care (01) | DRG 460 ==
LOC: OPSVCIP 06:11 → 4 NORTH 15:45
PROVIDERS: ADMIT Neurological Surgery; ATTEND Neurological Surgery
PROC: 0SB20ZZ Excision of Lumbar Vertebral Disc, Open Approach (ICD-10-PCS; 2020-08-26)
PROC: 01NB0ZZ Release Lumbar Nerve, Open Approach (ICD-10-PCS; 2020-08-26)
PROC: 00NY0ZZ Release Lumbar Spinal Cord, Open Approach (ICD-10-PCS; 2020-08-26)
PROC: 4A11X4G Monitoring of Peripheral Nervous Electrical Activity, Intraoperative, External Approach (ICD-10-PCS; 2020-08-26)
PROC: 0SG00AJ Fusion of Lumbar Vertebral Joint with Interbody Fusion Device, Posterior Approach, Anterior Column, Open Approach (ICD-10-PCS; principal; 2020-08-26 08:30)
DX: M48.061 Spinal stenosis, lumbar region without neurogenic claudication (principal); E11.9 Type 2 diabetes mellitus without complications; M54.16 Radiculopathy, lumbar region; Z87.442 Personal history of urinary calculi; Z86.16 Personal history of COVID-19; Z90.81 Acquired absence of spleen; Z83.3 Family history of diabetes mellitus; Z82.49 Family history of ischemic heart disease and other diseases of the circulatory system; Z80.9 Family history of malignant neoplasm, unspecified
CPT/HCPCS: 72131; 76000; 82962; 88304; 88311; A4213; A4222; A4223; A4314; A4364; A4556; A4930; A6254; A6257; A6258; C1713; J0690; J1100; J1815; J1885; J2250; J2270; J2405; J2704; J2710; J3010; J3480; J3490; J7030; J7120; 97116-GP; 97530-GP; G0378